=== PATIENT | female | born 1965 | race Caucasian/White ===

== ENCOUNTER 2024-04-25 14:56 | Outpatient (CLI) | payer BC, SELFPAY ==
--- NOTE | ~2024-04-25 | XR_ITS ---
[id number] 04/25/2024 15:23 Indication: Left knee pain Procedure: 2 views left knee Comparison: No prior studies for comparison. Findings: There is mild patellofemoral compartment osteoarthritis. No acute fracture or traumatic mal alignment. Small joint effusion. No foreign bodies. Impression: 1: Mild osteoarthritis of the patellofemoral joint. Reviewed, dictated and finalized at location B. [facility] [employer] Impression: 1: Mild osteoarthritis of the patellofemoral joint.
== END 2024-04-25 14:57 | disposition home or self-care (01) ==
PROVIDERS: PCP Family Medicine; Visit Provider Student in an Organized Health Care Education/Training Program
DX: M17.12 Unilateral primary osteoarthritis, left knee (principal)
CPT/HCPCS: 73560